=== PATIENT | male | born 1990 ===

== ENCOUNTER 2021-11-25 15:01 | Outpatient (CLI) | payer BC, SELFPAY ==
--- NOTE | ~2021-11-25 | US_ITS ---
EXAMINATION: US soft tissue LE DATE: 11/25/2021 15:30 INDICATION: Unspecified injury to the left quadriceps muscle, fascia and tendon with swelling and bru ising. TECHNIQUE: Multiple grayscale and Doppler ultrasound images of the region of concern at the anterior left thigh were obtained. COMPARISON: None FINDINGS: Nonspecific 7 x 6 x 1.5 mm thin crescentic anechoic collection of fluid along the margins of a lobula r region of subcutaneous fat. No other abnormal masses or fluid collections identified. The visualize d portion of the underlying musculature appears unremarkable. IMPRESSION: 1. Nonspecific tiny crescentic fluid collection in the subcutaneous fat consistent with provided hist ory of bruising. No other abnormal masses or fluid collections identified. Reviewed, dictated and finalized at location A. ASSEMBLER IMPRESSION: 1. Nonspecific tiny crescentic fluid collection in the subcutaneous fat consist ent with provided history of bruising. No other abnormal masses or fluid collec tions identified.
== END 2021-11-25 15:02 ==
PROVIDERS: PCP Nurse Practitioner; Visit Provider Nurse Practitioner
DX: S76.102D Unspecified injury of left quadriceps muscle, fascia and tendon, subsequent encounter (principal); X58.XXXD Exposure to other specified factors, subsequent encounter
CPT/HCPCS: 76882